=== PATIENT | female | born 1965 | race Two or more races ===

== ENCOUNTER 2017-04-04 07:14 | Day surgery (SDC) | payer MEDICARE, OTHER ==
--- NOTE | 2017-04-04 07:49 | PDGENHP ---
History & Physical Chief Complaint: hematemesis, melena History of Present Illness: hematemesis, excedrin use, now with melena Pertinent Past, Social, Family History: reviewed Relevant Physical Exam: NAD, obese Cardiorespiratory Assessment: RRR. ctab
[2017-04-04] MEDS ORDERED: LR 1,000 ML IV ONE (08:04)
[2017-04-04] MEDS ORDERED: LIDOCAINE 1% 2 ML INJ ID PRN (08:04)
[2017-04-04 08:13] VITALS: PULSE 70; RESP 18
--- NOTE | 2017-04-04 09:21 | PDANEPAE ---
ANE History of Present Illness melana, vomiting blood ANE Past Medical History - Cardiovascular History Hx Hypertension: No Hx Arrhythmias: No Hx Chest Pain: No Hx Coronary Artery / Peripheral Vascular Disease: No Hx CHF / Valvular Disease: No Hx Palpitations: No - Pulmonary History Hx COPD: No Hx Asthma/Reactive Airway Disease: No Hx Recent Upper Respiratory Infection: No Hx Oxygen in Use at Home: No Hx Sleep Apnea: No - Neurologic History Hx Cerebrovascular Accident: No Hx Seizures: No Hx Dementia: No - Endocrine History Hx Diabetes: No Hypothyroid: No Hyperthyroid: No Obesity: yes - Renal History Hx Renal Disorders: No - Liver History Hx Hepatic Disorders: No - Neurological & Psychiatric Hx Hx Neurological and Psychiatric Disorders: Yes Neurological / Psychiatric History Comment: anxiety - Congenital Disorder History Hx Congenital Disorders: No - GI History Hx Gastrointestinal Disorders: Yes - Chronic Pain History Chronic Pain: Yes ANE Review of Systems Review of systems is: negative - Exercise capacity Exercise capacity: >=4 METS ANE Patient History - Allergies Allergies/Adverse Reactions: hydrocodone Allergy (Severe, Verified 04/04/17 08:03) Fever hydromorphone [From Dilaudid] Allergy (Severe, Verified 04/04/17 08:02) Fever Sulfa (Sulfonamide Antibiotics) Allergy (Severe, Verified 04/04/17 08:02) Hives - Home Medications Home Medications: Benadryl 50 mg PRN 04/04/17 [Last Taken 04/03/17 21:00] Excedrin Tablet (*) PRN 04/04/17 [Last Taken 04/03/17 20:00] Meclizine HCl 25 mg (RX,OTC) 50 mg 04/04/17 [Last Taken 03/31/17] Percocet 10-325 mg Tablet 04/04/17 [Last Taken 04/03/17 19:00] Promethazine HCl 04/04/17 [Last Taken 04/03/17 16:00] Protonix 04/04/17 [Last Taken 04/03/17 08:00] SUMAtriptan 100 mg PRN 04/04/17 [Last Taken 04/02/17 20:00] Spironolactone 50 mg DAILY 04/04/17 [Last Taken 04/03/17 08:00] Xanax 0.5 MG (*) 04/04/17 [Last Taken 04/04/17 06:30] - NPO status NPO Status: no food or drink >8 hours NPO Since - Liquids (Date): 04/04/17 NPO Since - Liquids (Time): 06:15 NPO Since - Solids (Date): 04/03/17 NPO Since - Solids (Time): 22:00 ANE Labs/Vital Signs - Vital Signs Blood Pressure: 117/90 Heart Rate: 70 Respiratory Rate: 18 O2 Sat (%): 94 Height: 165.1 cm Weight: 121.56 kg ANE Physical Exam - Airway Mallampati Score: Class 2 Mouth exam: normal dental/mouth exam - Pulmonary Pulmonary: no respiratory distress - Cardiovascular Cardiovascular: regular rate and rhythym - ASA Status ASA Status: II ANE Anesthesia Plan Anesthesia Plan: GA with mask
[2017-04-04] MEDS ORDERED: LIDOCAINE 2% 5 ML SDV ONE (09:29)
[2017-04-04] MEDS ORDERED: PROPOFOL/EMULSION 500 MG/50 ML BOTTLE IV ONE (09:30)
[2017-04-04] MEDS ORDERED: ALBUTEROL 3 ML DEYVIAL IH PRN (09:40)
[2017-04-04] MEDS ORDERED: ACETAMINOPHEN 500 MG TAB PO PRN (09:40)
[2017-04-04] MEDS ORDERED: ONDANSETRON 4 MG/2 ML VIAL IVP PRN (09:40)
[2017-04-04] MEDS ORDERED: NALOXONE HCL 0.4 MG/ML INJ IVP PRN (09:40)
[2017-04-04] MEDS ORDERED: PROMETHAZINE HCL 25 MG/ML INJ IVP PRN (09:40)
[2017-04-04 10:51] VITALS: TEMP 98.2
[2017-04-04 10:55] VITALS: BP 113/74
[2017-04-04 11:03] VITALS: O2SAT 94
--- NOTE | 2017-04-04 13:40 | POSTANESTH ---
Post Anesthetic Evaluation Cardiovascular Status: Normal, Stable Respiratory Status: Normal, Stable Level of Consciousness/Mental Status: Can Participate in Eval Pain Control: Adequate, Prn Tx Ordered Nausea/Vomiting Control: Adequate, Prn Tx Ordered Complications Possibly Related to Anesthesia: None Noted
--- NOTE | 2017-04-04 15:38 | GPN ---
[f rep st] PROCEDURE NOTE DATE OF PROCEDURE: 04/04/2017 PROCEDURE: Esophagogastroduodenoscopy with biopsies. INDICATION: Hematemesis and melena. CONSENT: Informed consent was obtained from the patient after a thorough explanation of risks, bene fits, and alternatives to the procedure. MEDICATIONS GIVEN: Per Anesthesia. DESCRIPTION OF EXAM: After adequate sedation was achieved, the endoscope was advanced under direct vision through the oropharynx, esophagus, stomach, and as far as the 2nd portion of the duodenal. R etroflexion was performed in the stomach. The patient tolerance was good. Views were good. Findin gs as below. COMPLICATIONS: None. ESTIMATED BLOOD LOSS: Minimal. FINDINGS: 1. Esophagus: Normal with normal GE junction and no source of bleeding. 2. Stomach: Moderate gastritis with a small amount of old blood without active oozing seen in the antrum and body of the stomach. It had a striped appearance emanating from the pylorus, suspicious for gastric antral vascular ectasias. Biopsies were obtained from the antrum and body to assess for H pylori or other significant mucosal abnormalities. 3. Duodenum: Normal to the 2nd portion including the bulb. 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 RECOMMENDATIONS: 1. Omeprazole 40 mg daily for the time being. 2. Await biopsy results. 3. Resume other medications. 4. Follow up with Dr. Cid. 5. If patient has persistent evidence of bleeding with iron deficiency anemia or acute post hemorrh agic anemia, then consideration could be given to treatment of GAVE with APC. /[id number]/MODL
== END 2017-04-04 11:08 | disposition home or self-care (01) ==
LOC: FSGY 07:14 → MERGE 07:14 → FSGY 11:08
PROVIDERS: ATTEND Internal Medicine
PROC: 0DB68ZX Excision of Stomach, Via Natural or Artificial Opening Endoscopic, Diagnostic (ICD-10-PCS; principal; 2017-04-04 08:45)
DX: K29.70 Gastritis, unspecified, without bleeding (principal); K92.0 Hematemesis; K92.1 Melena; E66.9 Obesity, unspecified; Z68.41 Body mass index [BMI] 40.0-44.9, adult
CPT/HCPCS: J2704